=== PATIENT | male | born 1950 | race Caucasian/White ===

== ENCOUNTER 2019-05-24 06:06 | Day surgery (SDC) | payer OTHER ==
[~2019-05-24] VITALS: Ht 182.9 cm; Wt 94.8 kg
[~2019-05-24 06:06] MED LIST: ASA81BEC PO; FENOFIBRATE54 MG PO; LIPITOR 40 MG T40 M1 PO; MULTI VITAMIN1 EACH PO; PANTOPRAZOLE SO40 M1 PO; PLAVIX 75 MG TA75 MG PO; TOPROL XL25 MG PO; TRAVATAN Z5 ML OPHTHALMIC
[2019-05-24 07:26] VITALS: BP 137/63
--- NOTE | 2019-05-28 06:22 | O ---
[facility] [place] [address] OPERATIVE REPORT Name: JENIFFER COYNE Room #: DEP [facility]..#: [id number] Admission: 05/24/19 Attend Phys: Andi Cadet MD Discharge: 05/24/19 Date of : 54 Report #: [id number] THIS REPORT FOR: //name// CC: Mikey Cadet DATE OF SERVICE: 05/24/2019 PREOPERATIVE DIAGNOSIS: Left lower lid lesion. POSTOPERATIVE DIAGNOSIS: Left lower lid lesion. PROCEDURE: Excision of lesion of left lower lid with frozen sections and myocutaneous flap repair of defect. SURGEON: Andi Cadet M.D. RN UTILIZATION MANAGEMENT UM: None. ANESTHESIA: MAC. COMPLICATIONS: None. INDICATIONS FOR SURGERY: This pleasant 68-year-old gentleman has a nodular lesion in his central lower lid that is slowly enlarging with time. The lesion is not classic for chalazion or inflammatory lesion and appears to be cystic. The lesion is thought to potentially be frankly neoplastic. The current procedures are undertaken today in order to remove the lesion allowing the pathologist looked at the tissue removed in order to help determine if this lesion is a neoplastic process or a benign one. Informed consent was obtained to include but not limited to the potential risk for loss of vision, bleeding, infection, failure to improve the problem, the potential need for further surgery. DESCRIPTION OF PROCEDURE: The patient was taken to the operating room where 2% Xylocaine with epinephrine mixed with equal parts of 0.75% Marcaine with Wydase was administered transcutaneously and transconjunctivally to the left lower lid, the left lateral canthus and the left cheek. The patient was subsequently prepped and draped in the usual sterile fashion. A fine tip skin marking pen was then utilized to outline the lesion including 1-2 mm of tissue around its margins. The incisions were then made perpendicularly across the eyelid margin and drawn down to a point in the premalar space. As the incisions were made, the lesion was much more visible and appeared to be relatively well defined in the deeper subcutaneous structures. All of the lesion that was visible was [facility] [address] [place] [address] OPERATIVE REPORT Name: JENIFFER COYNE Room #: DEP [facility].#: [id number] Admission: 05/24/19 Attend Phys: Andi Cadet MD Discharge: 05/24/19 Date of : 54 Report #: [id number] removed. It was then oriented on a drawing for awaiting pathologist. Hemostasis was then achieved in the field with diligent pinpoint monopolar cautery. The pathologist snap froze that tissue and found that while she could not render a definitive diagnosis, she did not feel that was a basal cell carcinoma or a squamous cell carcinoma. She thought the lesion may end up being benign. A myocutaneous flap was then developed laterally to be rotated medially. Hemostasis was then re-achieved. The subcutaneous structures were then advanced and secured with multiple interrupted buried 5-0 Vicryl sutures. The tissue was somewhat verified from the lesion itself, which made the flap somewhat challenging. The tarsal plate was reapproximated with interrupted 5-0 Vicryl sutures. The eyelid margin was reapproximated with interrupted 7-0 Vicryl sutures. The more superficial subcutaneous structures were closed with interrupted Vicryl sutures deep and then a final closure of 6-0 plain gut sutures. The wounds were then cleaned and dressed with erythromycin ophthalmic ointment. The patient subsequently transported to the recovery area having tolerated the procedure well with no anesthetic or operative complications being noted. <ELECTRONICALLY SIGNED> By: Andi Cadet MD 05/28/19 [id number] Andi Cadet MD /nt
--- NOTE | 2019-05-28 09:46 | PATH ---
[facility] [place] [address] PATHOLOGY RPT PROCEDURE Name: JENIFFER COYNE Room #: DEP [facility].#: [id number] Admission: 05/24/19 Date of : 54 Discharge: 05/24/19 Report #: [id number] Path Case #: [id number] [facility] Accession Number: [id number] . 01 Material submitted: . eye - LEFT LOWER LID EYE LESION. Modifiers: left, lower . 02 Frozen section diagnosis: . FROZEN SECTION DIAGNOSIS: (By Dr. Rylee Jonas) FSA1. Skin, left lower lid lesion, excision: - Favor mature keratinous cyst. - Cyst ruptured while sectioning. - Cannot exclude an atypical squamous proliferative lesion at deep margin (base). . These findings are discussed with Dr. Andi Cadet in OR6 at [facility] and a written report is placed in the patient's chart. (IUV:pit; 05/24/2019) . FROZEN SECTION GROSS DESCRIPTION: The specimen is received fresh from the OR labeled with the patient's name and "left lower lid eye lesion" and consists of an inverted triangular skin excision measuring 0.7 cm at the base, 1.2 cm from base to the top of the triangle with a depth of 0.5 cm. The specimen is oriented as superior, lateral, inferior and medial by Dr. Cadet. The superior border (conjunctival margin) is inked orange. The lateral border is inked black including the deep margin. The inferomedial margin is inked marked blue and the supero-medial margin is inked green. The specimen is sections into three pieces. At this point wet keratin is exuded from the cyst-like lesion. The specimen is sectioned into three pieces and submitted for frozen section entirely as FSA1, this is subsequently submitted for permanent sections as A1. (IUV:pit; 05/24/2019) . Frozen section performed at [facility], [address] [place] [address] , [place] [address]. IZV/QTP . 02 Diagnosis: Skin, left lower lid eye lesion, excision: - Mature keratinous cyst. - Completely excised. - Overlying squamous epithelium showing reactive changes. . (IUV:mml; 05/25/2019) [facility] 05/25/2019 [address] [place] [address] PATHOLOGY RPT PROCEDURE Name: JENIFFER COYNE Room #: DEP [facility] [place] Melissa#: [id number] Admission: 05/24/19 Date of : 54 Discharge: 05/24/19 Report #: [id number] Path Case #: [id number] . 02 Electronically signed: . Rylee Jonas MD, Pathologist NPI- [id number] . 01 Gross description: . PLEASE SEE FROZEN SECTION FOR GROSS DESCRIPTION /QTP 05/24/2019 1245 Local . 02 Pathologist provided ICD-10: L72.0 . 02 CPT . 908852, 785200 Specimen Comment: A courtesy copy of this report has been sent to [phone] Specimen Comment: Report sent to Specimen Comment: A duplicate report has been generated due to demographic updates. Performed at: [address], [place] [id number] MD Joshua Lopez MD Phone: [phone] Performed at: [address] [id number] MD Rylee Jonas MD Phone: [phone]
== END 2019-05-24 09:40 | disposition home or self-care (01) ==
LOC: TBA 06:06 → OR 06:06
DX: L72.0 Epidermal cyst (principal); H02.89 Other specified disorders of eyelid; I10 Essential (primary) hypertension; E78.5 Hyperlipidemia, unspecified; N40.0 Benign prostatic hyperplasia without lower urinary tract symptoms; I25.10 Atherosclerotic heart disease of native coronary artery without angina pectoris; I25.2 Old myocardial infarction; K21.9 Gastro-esophageal reflux disease without esophagitis; Z98.890 Other specified postprocedural states; Z79.891 Long term (current) use of opiate analgesic; Z79.899 Other long term (current) drug therapy; Z79.82 Long term (current) use of aspirin; Z87.891 Personal history of nicotine dependence
CPT/HCPCS: 50010; 50101; 50386; 50398; 51636; 56528; 56531; 62110; 62850; 70005